=== PATIENT | female | born 1990 | race Two or more races ===

== ENCOUNTER 2019-08-07 14:24 | Emergency (ER) | payer SELFPAY ==
[~2019-08-07] VITALS: Ht 157.5 cm; Wt 76.7 kg
--- NOTE | 2019-08-07 16:26 | PHYS DOC ---
Adult General Chief Complaint Chief Complaint: VAGINAL BLEEDING [facility] HPI Patient is a 29 year old female that presents with vaginal bleeding on Wednesday. The patient's out found out she is on July 28. The patient denies abdominal cramping, bright red blood, has been saturating about 1 pad per day. Planes of nausea. The patient rates her pain 5 out of 10 in severity and sharp. The patient has 2 living children and this her third . No history of miscarriages. Review of Systems Review of Systems Constitutional: Denies fever or chills [] Eyes: Denies change in visual acuity, redness, or eye pain [] HENT: Denies nasal congestion or sore throat [] Respiratory: Denies cough or shortness of breath [] Cardiovascular: No additional information not addressed in HPI [] GI: Reports abdominal pain, nausea, vomiting, Denies bloody stools or diarrhea [] : Reports vaginal bleeding. Musculoskeletal: Denies back pain or joint pain [] Integument: Denies rash or skin lesions [] Neurologic: Denies headache, focal weakness or sensory changes [] Endocrine: Denies polyuria or polydipsia [] Complete systems were reviewed and found to be within normal limits, except as documented in this note. Current Medications Current Medications Current Medications Medications (Trade) Dose Ordered Sig/Mary Start Time Stop Time Status Last Admin Dose Admin Ondansetron HCl (Zofran) 4 mg 1X ONCE 08/07/19 16:30 08/07/19 16:32 DC 08/07/19 16:50 4 MG Sodium Chloride 1,000 ml @ 1,000 mls/hr 1X ONCE 08/07/19 16:30 08/07/19 17:29 DC 08/07/19 16:50 1,000 MLS/HR Allergies Allergies Allergies Coded Allergies Type Severity Reaction Last Updated Verified No Known Drug Allergies 08/07/19 No Physical Exam Physical Exam Constitutional: Well developed, well nourished, no acute distress, non-toxic appearance. [] HENT: Normocephalic, atraumatic, bilateral external ears normal, oropharynx moist, no oral exudates, nose normal. [] Eyes: PERRLA, EOMI, conjunctiva normal, no discharge. [] Neck: Normal range of motion, no tenderness, supple, no stridor. [] Cardiovascular:Heart rate regular rhythm, no murmur [] Lungs & Thorax: Bilateral breath sounds clear to auscultation [] Abdomen: Bowel sounds normal, soft, lower abdominal tenderness, no masses, no pulsatile masses. [] Skin: Warm, dry, no erythema, no rash. [] Back: No tenderness, no CVA tenderness. [] Extremities: No tenderness, no cyanosis, no clubbing, ROM intact, no edema. [] Neurologic: Alert and oriented X 3, normal motor function, normal sensory function, no focal deficits noted. [] Psychologic: Affect normal, judgement normal, mood normal. [] Current Patient Data Vital Signs Vital Signs Date Time Temp Pulse Resp B/P (MAP) Pulse Ox O2 Delivery O2 Flow Rate FiO2 08/07/19 15:55 99.0 81 20 119/72 (88) 100 Room Air 99.0 Lab Values Laboratory Tests Test 08/07/19 15:55 08/07/19 15:59 08/07/19 16:17 Urine Color Yellow Urine Clarity Clear Urine pH 7.0 Urine Specific [place] 1.020 Urine Protein Negative mg/dL (NEG-TRACE) Urine Glucose (UA) Negative mg/dL (NEG) Urine Ketones (Stick) Negative mg/dL (NEG) Urine Blood Large (NEG) Urine Nitrite Negative (NEG) Urine Bilirubin Negative (NEG) Urine Urobilinogen Dipstick 0.2 mg/dL (0.2 mg/dL) Urine Leukocyte Esterase Small (NEG) Urine RBC 3-5 /HPF (0-2) Urine WBC 5-10 /HPF (0-4) Urine Squamous Epithelial Cells Occ /LPF Urine Amorphous Sediment Present /HPF Urine Bacteria Few /HPF (0-FEW) Urine Mucus Mod /LPF POC Urine HCG, Qualitative Hcg positive (Negative) White Blood Count 7.7 x10^3/uL (4.0-11.0) Red Blood Count 4.26 x10^6/uL (3.50-5.40) Hemoglobin 13.1 g/dL (12.0-15.5) Hematocrit 38.4 % (36.0-47.0) Mean Corpuscular Volume 90 fL (79-100) Mean Corpuscular Hemoglobin 31 pg (25-35) Mean Corpuscular Hemoglobin Concent 34 g/dL (31-37) Red Cell Distribution Width 13.4 % (11.5-14.5) Platelet Count 258 x10^3/uL (140-400) Neutrophils (%) (Auto) 42 % (31-73) Lymphocytes (%) (Auto) 36 % (24-48) Monocytes (%) (Auto) 9 % (0-9) Eosinophils (%) (Auto) 12 % (0-3) H Basophils (%) (Auto) 1 % (0-3) Neutrophils # (Auto) 3.3 x10^3/uL (1.8-7.7) Lymphocytes # (Auto) 2.7 x10^3/uL (1.0-4.8) Monocytes # (Auto) 0.7 x10^3/uL (0.0-1.1) Eosinophils # (Auto) 0.9 x10^3/uL (0.0-0.7) H Basophils # (Auto) 0.1 x10^3/uL (0.0-0.2) Maternal Serum HCG Beta Subunit 70082 mIU/mL (0-5) H Sodium Level 139 mmol/L (136-145) Potassium Level 3.8 mmol/L (3.5-5.1) Chloride Level 101 mmol/L (98-107) Carbon Dioxide Level 28 mmol/L (21-32) Anion Gap 10 (6-14) Blood Urea Nitrogen 8 mg/dL (7-20) Creatinine 0.7 mg/dL (0.6-1.0) Estimated GFR (Cockcroft-Gault) 99.6 BUN/Creatinine Ratio 11 (6-20) Glucose Level 85 mg/dL (70-99) Calcium Level 9.2 mg/dL (8.5-10.1) Total Bilirubin 0.4 mg/dL (0.2-1.0) Aspartate Amino Transferase (AST) 31 U/L (15-37) Alanine Aminotransferase (ALT) 48 U/L (14-59) Alkaline Phosphatase 64 U/L (46-116) Total Protein 7.6 g/dL (6.4-8.2) Albumin 4.0 g/dL (3.4-5.0) Albumin/Globulin Ratio 1.1 (1.0-1.7) Laboratory Tests 08/07/19 16:17 Laboratory Tests 08/07/19 16:17 EKG EKG [] Radiology/Procedures Radiology/Procedures [][facility] [address] [place] [address] IMAGING REPORT Signed PATIENT: CHENTE ECHAVARRIA: [id number] : 1990 LOCATION: ER AGE: 29 SEX: F EXAM STATUS: REG ER ORD. PHYSICIAN: ABHINAV BANKS APRN REASON: vaginal bleeding, abd pain PROCEDURE: OB <14 WKS W/TV Study: OB <14 WKS W/TV DATE: 08/07/2019 4:27 PM INDICATION: Vaginal bleeding and abdominal pain. Known . COMPARISON: None. TECHNIQUE: Transabdominal and transvaginal ultrasonography of the pelvis was performed. Color Doppler and duplex were utilized as appropriate. FINDINGS: Intrauterine gestational sac is present and contains a pole with a measured crown-rump length of 0.34 cm a corresponds to an estimated gestational age of 6 weeks 0 days. An expanded amnion is noted surrounding the pole. No heart tones are detected. Normal Doppler flow is maintained to both ovaries which are very similar in size. No free fluid seen within the pelvis. IMPRESSION: Intrauterine gestational sac containing a pole with no detectable heart tones. The size of the pole corresponds to an estimated gestational of 6 weeks 0 days but based on last menstrual period, gestational age is 9 weeks 0 days. The discrepancy between clinical and ultrasound gestational age as well as the presence of an expanded amnion are highly suspicious for a failed first trimester . Short-term follow-up and trending of the beta hCG is needed. Electronically signed by: DILEEP BELTRAN MD (08/07/2019 5:44 PM) [facility] Course & Med Decision Making Course & Med Decision Making Pertinent Labs and Imaging studies reviewed. (See chart for details) Will get Ultrasound, Labs, and UA. Unsure when last menstrual period was. Labs show A + blood type. HC Urine shows leukocytes. Ultrasound shows no heartbeat. Will have patient follow up with OB outpatient in 2 days. Dragon Disclaimer Dragon Disclaimer This electronic medical record was generated, in whole or in part, using a voice recognition dictation system. Departure Departure Impression: Primary Impression: Incomplete miscarriage Additional Impression: Urinary tract infection Disposition: 01 HOME, SELF-CARE Condition: STABLE Referrals: NO PCP (PCP) CLARISSA CALERO MD Patient Instructions: Incomplete Miscarriage, - Urinary Tract Infection Additional Instructions: Thank you for visiting [facility]. We appreciate you trusting us with your care. If any additional problems come up don't hesitate to return to visit us. Please follow up with your primary care provider so they can plan additional care if needed and know about the problem that you had. If symptoms worsen come back to the Emergency Department. Any concerning symptoms that start such as chest pain, shortness of air, weakness or numbness on one side of the body, running high fevers or any other concerning symptoms return to the ER. Please follow up with an [facility] in 2 days for further testing. Beta HCG was 21,708 in ER. Problem Qualifiers Additional Impression: Urinary tract infection Urinary tract infection type: acute cystitis Hematuria presence: with hematuria Qualified Codes: N30.01 - Acute cystitis with hematuria ABHINAV BANKS APRN Aug 07, 2019 16:26
[2019-08-07 16:40] LABS: BASO # 0.1 x10^3/uL (0.0-0.2); BASO % 1 % (0-3); EOS # 0.9 x10^3/uL (0.0-0.7); EOS % 12 % (0-3); HEMATOCRIT 38.4 % (36.0-47.0); HEMOGLOBIN 13.1 g/dL (12.0-15.5); LYMPH # 2.7 x10^3/uL (1.0-4.8); LYMPH % 36 % (24-48); MEAN CORPUSCULAR HEMOGLOBIN 31 pg (25-35); MEAN CORPUSCULAR HGB CONC 34 g/dL (31-37); MEAN CORPUSCULAR VOLUME 90 fL (79-100); MONO # 0.7 x10^3/uL (0.0-1.1); MONO % 9 % (0-9); NEUT # 3.3 x10^3/uL (1.8-7.7); NEUT % 42 % (31-73); PLATELET COUNT 258 x10^3/uL (140-400); RED BLOOD COUNT 4.26 x10^6/uL (3.50-5.40); RED CELL DISTRIBUTION WIDTH 13.4 % (11.5-14.5); WHITE BLOOD COUNT 7.7 x10^3/uL (4.0-11.0)
[2019-08-07 16:46] LABS: BILIRUBIN,URINE NEGATIVE (NEG); CLARITY,URINE CLEAR; COLOR,URINE YELLOW; NITRITE,URINE NEGATIVE (NEG); PROTEIN,URINE NEGATIVE (NEG-TRACE); UROBILINOGEN,URINE 0.2 mg/dL (0.2 mg/dL)
[2019-08-07 16:49] LABS: CALCIUM 9.2 mg/dL (8.5-10.1); CREATININE 0.7 mg/dL (0.6-1.0); GFR 99.6; POTASSIUM 3.8 mmol/L (3.5-5.1)
[2019-08-07] MEDS: IV NORMAL SALINE 1000ML BAG 1,000 ML IV ONE (16:50)
[2019-08-07] MEDS: ONDANSETRON PF 4 MG/2 ML VIAL. IV ONE (16:50)
[2019-08-07 16:55] LABS: AMORPHOUS SEDIMENT,UR PRESENT /HPF; BACTERIA,URINE FEW /HPF (0-FEW); SQUAMOUS EPITHELIAL CELL,UR OCC /LPF
[2019-08-07 16:55] LABS: ALBUMIN/GLOBULIN RATIO 1.1 (1.0-1.7); TOTAL BILIRUBIN 0.4 mg/dL (0.2-1.0); TOTAL PROTEIN 7.6 g/dL (6.4-8.2)
[2019-08-07 17:31] VITALS: BP 112/72
--- NOTE | 2019-08-07 17:47 | RAD ---
Study: OB <14 WKS W/TV DATE: 08/07/2019 4:27 PM INDICATION: Vaginal bleeding and abdominal pain. Known . COMPARISON: None. TECHNIQUE: Transabdominal and transvaginal ultrasonography of the pelvis was performed. Color Doppler and duplex were utilized as appropriate. FINDINGS: Intrauterine gestational sac is present and contains a pole with a measured crown-rump length of 0.34 cm a corresponds to an estimated gestational age of 6 weeks 0 days. An expanded amnion is noted surrounding the pole. No heart tones are detected. Normal Doppler flow is maintained to both ovaries which are very similar in size. No free fluid seen within the pelvis. IMPRESSION: Intrauterine gestational sac containing a pole with no detectable heart tones. The size of the pole corresponds to an estimated gestational of 6 weeks 0 days but based on last menstrual period, gestational age is 9 weeks 0 days. The discrepancy between clinical and ultrasound gestational age as well as the presence of an expanded amnion are highly suspicious for a failed first trimester . Short-term follow-up and trending of the beta hCG is needed. Electronically signed by: DILEEP BELTRAN MD (08/07/2019 5:44 PM) [facility]
[2019-08-09] MEDS ORDERED: METR-34 PO (14:57)
== END 2019-08-07 18:38 | disposition home or self-care (01) ==
LOC: ER 14:24
DX: O03.4 Incomplete spontaneous abortion without complication (principal); O23.41 Unspecified infection of urinary tract in pregnancy, first trimester; Z3A.01 Less than 8 weeks gestation of pregnancy
CPT/HCPCS: 36415; 76801; 76817; 80053; 81001; 81025; 84702; 85025; 86900; 86901; 87086; 96361; 96374; 99285; J2405; J7030

== ENCOUNTER 2019-08-10 05:57 | Day surgery (SDC) | payer SELFPAY ==
[~2019-08-10] VITALS: Ht 157.5 cm; Wt 76.7 kg
[~2019-08-10 05:57] MED LIST: METR-34 PO
[2019-08-10] MEDS ORDERED: HYDROmorphone 2 MG/ML VIAL IV PRN (07:00)
[2019-08-10] MEDS ORDERED: LIDOCAINE 1% PF 2 ML VIAL. ID PRN (07:00)
[2019-08-10] MEDS ORDERED: fentaNYL PF VIAL 100 MCG/2 ML VIAL IV PRN ×2 (07:00)
[2019-08-10] MEDS ORDERED: IV RINGERS,LACTATED 1000ML 1,000 ML IV SCH (07:00)
[2019-08-10] MEDS ORDERED: ONDANSETRON PF 4 MG/2 ML VIAL. IV PRN (07:00)
[2019-08-10] MEDS ORDERED: PROCHLORPERAZINE 10 MG/2 ML VIAL. IV PRN (07:00)
[2019-08-10] MEDS ORDERED: MORPHINE SULFATE 2 MG/ML VIAL. IV PRN (07:00)
[2019-08-10] MEDS ORDERED: miSOPROStol 200 MCG TABLET ONE ×2 (07:20)
[2019-08-10] MEDS ORDERED: OXYTOCIN 10 UNIT/ML VIAL. ONE ×3 (07:20→08:30)
[2019-08-10] MEDS ORDERED: MIDAZOLAM HCL/PF 2 MG/2 ML VIAL. ONE (07:43)
[2019-08-10] MEDS ORDERED: fentaNYL PF VIAL 100 MCG/2 ML VIAL ONE (07:44)
[2019-08-10] MEDS ORDERED: LIDOCAINE 2% PF 5 ML VIAL. ONE (08:12)
[2019-08-10] MEDS ORDERED: DEXAMETHASONE SOD PHOS 4 MG/ML VIAL ONE (08:12)
[2019-08-10] MEDS ORDERED: ONDANSETRON PF 4 MG/2 ML VIAL. ONE (08:12)
[2019-08-10] MEDS ORDERED: KETOROLAC 30 MG/ML VIAL. ONE (08:12)
[2019-08-10] MEDS ORDERED: PROPOFOL 20 ML IV ONE (08:12)
[2019-08-10] MEDS ORDERED: SEVOFLURANE 31 TO 60 MINUTES. IH ONE (08:31)
--- NOTE | 2019-08-10 08:40 | PDOC ---
GENERAL General: 29yrs old [place] lady scheduled for Dand C Suction Curettage.for Incomplete . VITAL SIGNS Vital Signs/I&O: Vital Signs Date Time Temp Pulse Resp B/P (MAP) Pulse Ox O2 Delivery O2 Flow Rate FiO2 08/10/19 06:44 97.5 85 110/69 98 97.5 08/10/19 06:36 16 ALLERGIES Allergies: Allergies Coded Allergies Type Severity Reaction Last Updated Verified No Known Drug Allergies 08/09/19 No ASSESSMENT & PLAN A&P Under GA Dand C Suction Curettage done. EBL 150cc. Will see her in office in 2 weeks. CLARISSA CALERO MD Aug 10, 2019 08:40
--- NOTE | 2019-08-10 08:55 | OP ---
DATE OF SURGERY: PREOPERATIVE DIAGNOSIS: Incomplete . POSTOPERATIVE DIAGNOSIS: Incomplete . OPERATION PERFORMED: D and C, suction curettage. DESCRIPTION OF PROCEDURE: The patient was taken to the operating room. Under general anesthesia, she was placed in a dorsal lithotomy position. Perineum was prepped and draped in the usual manner. Weighted speculum inserted in the posterior vaginal wall. Anterior lip of the cervix held with a tenaculum. Cervix was dilated first and a medium-sized curette was used to curette the endometrial cavity. Also, size 7 suction tip cannula was used to suction the uterus. All the curettings obtained were subjected for pathological examination. At the end of the curettage, speculum, tenaculum is removed. The patient was sent to the recovery room in good condition. No complications encountered at time of the procedure. She did receive 20 units of Pitocin IV bottle of fluid during the time of the D and C. Estimated blood loss about 150 mL. The patient will be seen in the office as outpatient in 2 weeks for further postoperative care and treatment. CLARISSA CALERO MD DR: VERÓNICA/canelo JOB#: [id number] / [id number]
[2019-08-10] MEDS ORDERED: TRAM50TA PO (09:27)
[2019-08-10 09:31] LABS: HEMATOCRIT 37.7 % (36.0-47.0); HEMOGLOBIN 12.8 g/dL (12.0-15.5)
[2019-08-10 10:00] VITALS: BP 106/67
[2019-08-10] MEDS ORDERED: traMADol 50 MG TABLET PO ONE (10:00)
--- NOTE | 2019-08-11 17:06 | PATHOLOGY ---
[facility] Accession Number: [id number] . 01 Material submitted: . product of conception - PRODUCTS OF CONCEPTION . 01 Clinical history: . Incomplete . 02 Diagnosis: Uterine contents, suction D and C: - Products of conception, comprised of immature chorionic villi showing focal mild hydropic degenerative changes and focally containing nucleated red blood cells, and segments of decidual tissue and secretory endometrium showing focal necrosis and acute inflammation. (JPM:viet; 08/11/2019) S 08/11/2019 1530 Local . 02 Electronically signed: . Duc Hermosillo MD, Pathologist NPI- [id number] . 01 Gross description: . The specimen is received in formalin, labeled "Dali Driver, products of conception", are multiple irregular fragments of hemorrhagic and angulo-pink membranous soft tissues measuring 5.5 x 4.7 x 1.0 cm in aggregate. Spongy placental tissue is present, but no discrete parts or grapelike cystic structures are present. Representatively submitted in A1-A3. ([facility]; 08/10/2019) [facility] 08/10/2019 1746 Local . 02 Pathologist provided ICD-10: O03.4, O02.89 . 02 CPT . 056194 Specimen Comment: A courtesy copy of this report has been sent to [phone] Specimen Comment: Report sent to Performed at: 01 [facility] [address] [facility] [address], [place] [id number] MD Bladimir Rudolph MD Phone: [phone] Performed at: 02 [facility] [address] [place], [place] [id number] MD Duc Hermosillo MD Phone: [phone]
== END 2019-08-10 10:30 | disposition home or self-care (01) ==
LOC: SURG 05:57
PROVIDERS: ATTEND Obstetrics & Gynecology
DX: O03.4 Incomplete spontaneous abortion without complication (principal)
CPT/HCPCS: 36415; 59812; 85014; 85018; 86850; 86900; 86901; 88305; A7015; J0690; J1100; J1885; J2001; J2250; J2405; J2590; J2704; J3010